=== PATIENT | male | born 1970 | race Two or more races ===

== ENCOUNTER → 2017-07-17 | Outpatient (CLI) | payer OTHER ==
[~2017-07-17] MED LIST: AMLODIPINE BESY10 MG PO; GLYBURIDE-METF1 EACH PO; LOSARTAN POTAS100 MG PO; OMEPRAZOLE PO
--- NOTE | 2017-07-17 12:46 | Diagnostic Imaging Report ---
PROCEDURE:X-RAY LEFT KNEE, THREE OR MORE VIEWS COMPARISON:None. INDICATIONS:SWELLING OF LEFT KNEE FINDINGS: The bones are well-mineralized. There are no fractures, subluxations, lytic or blastic lesions. Small suprapatellar joint effusion is suspected. CONCLUSION: No acute fracture or dislocation of the left knee. Small suprapatellar joint effusion suspected. Dictated by: Louie Briggs M.D. on 07/17/2017 at 12:55 Electronically approved by: Louie Briggs M.D. on 07/17/2017 at 12:55
== END ==
LOC: RAD 11:58
PROVIDERS: ATTEND Internal Medicine
DX: M25.562 Pain in left knee (principal); M25.462 Effusion, left knee

== ENCOUNTER → 2017-08-20 | Outpatient (CLI) | payer OTHER ==
--- NOTE | 2017-08-20 15:44 | Diagnostic Imaging Report ---
TECHNIQUE: Magnetic resonance imaging of the LEFT KNEE was performed WITHOUT injected contrast. HISTORY: Medial meniscal tear COMPARISON: None available. FINDINGS: LIGAMENTS AND TENDONS: ACL: Intact, minimal intrasubstance degeneration. PCL: Intact Collateral ligaments: Mild intrasubstance delamination of the medial collateral ligament near the level of the joint line, without adjacent edema. Intact fibular collateral ligament. Iliotibial band: Unremarkable Popliteal tendon: Intact Extensor mechanism: Intact JOINT: Menisci: Medial: Minimal free margin attenuation and fraying. Lateral: Intact Articular Cartilage: Medial Compartment: High-grade to full-thickness erosion at the posterior weightbearing surface of the medial femoral condyle. Lateral Compartment: No focal defect. Patellofemoral Compartment: High-grade erosion and fibrillation at the patellar apex and adjacent facets. Joint Fluid: Small nonspecific joint effusion with synovitis. BONES: No focal or infiltrative bone marrow replacing abnormality. No acute fracture. SOFT TISSUES: Otherwise, unremarkable. IMPRESSION: 1. Medial and patellofemoral compartment degenerative changes, including the free margin of the medial meniscus. 2. Small nonspecific joint effusion with synovitis. 3. Remote low-grade partial-thickness intrasubstance tearing of the medial collateral ligament. Signed by: Dr. Patel Roger D.O., M.M.M. on 08/20/2017 3:40 PM
== END ==
LOC: MRI 10:46
PROVIDERS: ATTEND Orthopaedic Surgery
DX: S83.222A Peripheral tear of medial meniscus, current injury, left knee, initial encounter (principal)

== ENCOUNTER → 2017-10-12 | Outpatient (CLI) | payer OTHER ==
[~2017-10-12] MED LIST changes: +DIATRIZOATE MEGL/DIATRIZOA SOD 30 ML BTL PO ONE; +IOPAMIDOL 370 MG/ML 200 ML INFUS..BTL INJ ONE; +SODIUM CHLORIDE 0.9% 50ML 50 ML ONE
[2017-10-12 12:03] LABS: BLOOD UREA NITROGEN 22 mg/dL (8-26); BUN/CREATININE RATIO 24 (6-25); CREATININE, SERUM 0.9 mg/dL (0.9-1.3); EST GLOMERULAR FILTRATION RATE > 60 ML/MIN (60-)
--- NOTE | 2017-10-12 13:01 | Diagnostic Imaging Report ---
PROCEDURE:CT ABDOMEN AND PELVIS WITH CONTRAST COMPARISON:None. INDICATIONS:ABD PAIN, bloating constipation and diarrhea TECHNIQUE: Multidetector CT scanning of the abdomen and pelvis was performed after the administration of 100 cc of ionic contrast. Coronal and sagittal reformations were obtained. Routine protocol performed. DLP: 678.9 FINDINGS: Lung bases: Clear. Visualized portion of the mediastinum is normal Liver: Diffusely decreased attenuation without mass Biliary: The gallbladder is absent. No biliary ductal dilatation Spleen: Normal size and attenuation without mass Pancreas: Diffuse fatty atrophy without mass or ductal dilatation Adrenal Glands: No mass Kidneys: Symmetric enhancement. A cyst in the medial upper pole of the left kidney measures 2.5 x 2.7 cm. A cyst in the lateral upper pole measures 8 mm. A cyst in the medial upper pole of the right kidney measures 11 mm. There are no enhancing renal lesions. No hydronephrosis. Gastrointestinal: The stomach, small bowel, and large bowel in diameter and wall thickness. Enteric contrast extends into the mid small bowel. There is normal mucosal enhancement of the small bowel. Terminal ileum is normal. There are a several diverticula in the descending colon and sigmoid colon without associated inflammation. Appendix is normal. Vasculature: Normal diameter and morphology. A few atherosclerotic ossifications are present in the common iliac arteries. Peritoneum/Retroperitoneum: No free fluid or fluid collection. Lymph nodes: No lymphadenopathy Bladder: Normal. Prostate gland and seminal vesicles are normal. Musculoskeletal: The bones are unremarkable for age. There is a fat containing left inguinal hernia with an aperture 16 mm. An umbilical hernia has an aperture of 15 mm. There are no bowel containing hernias. CONCLUSION: Diverticulosis coli. No evidence of bowel obstruction or inflammation. Hepatic steatosis. Cholecystectomy. Normal biliary tree. Left inguinal and umbilical hernias containing fat. Bilateral renal cysts. Dictated by: Emil Valladares M.D. on 10/12/2017 at 13:01 Electronically approved by: Emil Valladares M.D. on 10/12/2017 at 13:01
== END ==
LOC: CT 11:11
PROVIDERS: ATTEND Internal Medicine Gastroenterology
DX: R10.9 Unspecified abdominal pain (principal); K58.9 Irritable bowel syndrome, unspecified; K57.90 Diverticulosis of intestine, part unspecified, without perforation or abscess without bleeding
CPT/HCPCS: 36415; 74177; 82565; 84520; Q9967